=== PATIENT | female | born 1995 | race Caucasian/White ===

== ENCOUNTER 2021-09-01 11:12 | Emergency (ER) | payer OTHER, SELFPAY ==
--- NOTE | ~2021-09-01 | CT_ITS ---
EXAMINATION: CT ABDOMEN AND PELVIS WITHOUT CONTRAST CLINICAL INFORMATION: Right lower quadrant abdominal pain COMPARISON: None TECHNIQUE: Multidetector volumetric imaging was performed from the superior aspect of the liver through the pubic symphysis. Sagittal and coronal reformatted images were obtained on the technologist's workstation. This CT examination was performed using dose optimization techniques as appropriate, variously including the following: *Automated exposure control *Adjustment of mA and/or kV according to patient size (this includes techniques or standardized protocols for targeted exams where dose is matched to indication/reason for exam; i.e. extremities or head) *Use of iterative reconstruction technique DLP: 640 mGy-cm FINDINGS: LUNG BASES: The visualized lung bases are unremarkable. No pleural or pericardial effusion. LIVER, GALLBLADDER, AND BILIARY TREE: The liver is normal in size, shape, and attenuation. No focal hepatic lesion or biliary ductal dilatation is present. The gallbladder wall appears somewhat thickened and there may be some pericholecystic fat stranding present but difficult to evaluate due to lack of contrast and intra-abdominal fat. No cholelithiasis is identified. PANCREAS: Unremarkable. SPLEEN: Unremarkable. ADRENAL GLANDS: Unremarkable. KIDNEYS AND URETERS: There is mild right hydronephrosis present. There is a 3 mm nonobstructing calculus within the lower pole. There is columnization of the right ureter down to the ureterovesical junction where there are 2 adjacent calculi one measuring 5 mm in size and the other 2 mm in size. The left kidney appears unremarkable. The left ureter appears unremarkable. BLADDER: Right UVJ calculus GASTROINTESTINAL TRACT: No dilated loops of large or small bowel are evident. No free air is identified. There is a small amount of free fluid seen within the pelvis. The appendix appears unremarkable. No pericolonic inflammatory changes seen. ABDOMINAL WALL: No significant hernia is appreciated. LYMPH NODES: No lymphadenopathy is appreciated. VASCULAR: Unremarkable. PELVIC VISCERA: Intrauterine device seen in place. Small amount of free fluid. OSSEOUS STRUCTURES: Unremarkable. CT/CT abdomen pelvis wo con IMPRESSION: Mild right hydronephrosis with obstructing calculi at the right ureterovesical junction as described. Thick-walled gallbladder of uncertain etiology but may be secondary to pseudo thickening related to postprandial state. Clinical evaluation is suggested with possible ultrasound however the right-sided obstructive uropathy explains the patient's symptoms..
[2021-09-01 11:31] VITALS: BP 121/71; PULSE 67; RESP 18; TEMP 36.8; O2SAT 99; BMI 25.1
--- NOTE | 2021-09-01 11:53 | ED.ABDPAIN ---
HPI - Abdominal Pain General Chief Complaint: Abdominal Pain Stated Complaint: RLQ Abdominal Pain Time Seen by Provider: 09/01/21 11:52 Source: patient Mode of arrival: ambulatory Limitations: no limitations History of Present Illness HPI narrative: This is a 25-year-old female that presents to the emergency department with severe right lower quadrant pain that started this morning. Patient tells me that when she woke up this morning he started to have a crampy sensation her right lower quadrant, she felt like she had to urinate however she was unable to. She tells me that the pain started off as severe but at this time it is getting even worse. She tells me she has never had pain like this before. She also reports associated nausea and vomiting She denies any abdominal surgeries. She denies fevers, chills, chest pain, shortness of breath, headache, vision changes, dizziness, weakness. Patient tells me that she has a family history of kidney stones. Patient tells me that she is not currently sexually active, and does not think she is . MD elicited complaint: abdominal pain Pertinent past history: none Onset (ago): hour(s) (4) Pain Consistency: constant Location: RLQ Severity: severe Pain scale (0-10): 11 Quality: cramping and stabbing Radiation: none Migration to: no migration Exacerbating factors: nothing Relieving factors: nothing Associated symptoms: nausea and vomiting Related Data Home Medications Medication Instructions Recorded Confirmed rizatriptan 10 mg disintegrating 10 mg PO DAILY PRN 09/01/21 09/01/21 tablet (Maxalt-MANAGER LVN) sertraline 100 mg tablet 100 mg PO DAILY 09/01/21 09/01/21 Previous Rx's Medication Instructions Recorded morphine 15 mg immediate release 15 mg PO Q8H PRN #10 tab 09/01/21 tablet ondansetron HCl 4 mg tablet 4 mg PO Q8H PRN #10 tab 09/01/21 (Zofran) prednisone 20 mg tablet 20 mg PO DAILY 5 Days #5 tab 09/01/21 tamsulosin 0.4 mg capsule (Flomax) 0.4 mg PO DAILY 14 Days #14 cap 09/01/21 Allergies Allergy/AdvReac Type Severity Reaction Status Date / Time Iodinated Contrast Media Allergy Itching Verified 09/01/21 13:28 [Contrast Dye] Penicillins Allergy Unknown Verified 09/01/21 11:31 shellfish derived Allergy Unknown Verified 09/01/21 11:31 Sulfa (Sulfonamide Allergy Unknown Verified 09/01/21 11:31 Antibiotics) Review of Systems Review of Systems Constitutional : No Weight loss, No Fever, No Chills ENT/Mouth :? No sore throat, No Rhinorrhea Eyes: No Swelling, No Redness Cardiovascular : No Chest Pain, No SOB, NoEdema Respiratory : No Cough, No Sputum, No Wheezing Gastrointestinal : Positive Nausea, Positive Vomiting, No Diarrhea, positive abdominal Pain, No Hematochezia, No Melena Genitourinary : No Dysuria, No Urinary Frequency, No Hematuria, No Urgency Musculoskeletal : No joint pain, No Myalgias, No Joint Swelling Skin : No Skin Lesions, No rash Neuro : No Weakness, No Numbness, No Dizziness, No Headache Psych : No Anxiety/Panic, No Depression All other systems reviewed and are negative. Yes all other systems are reviewed and are negative Physical Exam Vital Signs: Vital Signs: Last Vital Signs Temp 98.2 F 09/01/21 11:31 Pulse 59 09/01/21 14:32 Resp 18 09/01/21 14:32 BP 107/63 09/01/21 14:32 Pulse Ox 99 09/01/21 14:32 BMI result Body Mass Index 25.1 VSS Appearance: Alert.? Oriented X3.? No acute distress.? Patient appears uncomfortable Head: Normocephalic, atraumatic, no step-offs or deformities Eyes: Pupils equal, round and reactive to light.? ENT: Pharynx normal.? Neck: Normal inspection.? Neck supple.? CVS: Normal heart rate and rhythm.? Pulses normal.? Respiratory: No respiratory distress.? Breath sounds normal.? Abdomen: Soft and + tender to RLQ.? Skin: Skin warm and dry.? Normal skin color.? Normal skin turgor.? Extremities: No lower extremity edema.? No calf ttp. 5/5 strength to bilateral upper and lower extremities Back: No midline tenderness, no C-spine tenderness, full range of motion, no CVA tenderness bilaterally Neuro: Oriented X 3.? No motor deficit.? No sensory deficit. Course Reevaluation(s) Reevaluation #1: Labs show no signs of acute infection. A normocytic anemia is noted. No electrolyte abnormalities. Urine toxicology negative. COVID negative. Patient tells me that she is allergic to IV contrast, she tells me she gets very tanned leak, and her throat closes, she also reports she has an allergy to shellfish. For this reason a dry CT will be done. Time: 13:55 Reevaluation #2: Patient still reporting severe pain, she will be given 2 mg of IV morphine. CT shows obstructing stone to the right ureter. I have contacted Dr. Rincon who will come evaluate the patient at the bedside. At this time I ordered prednisone, and Flomax. Time: 16:34 Reevaluation #3: Spoke to feels comfortable discharging the patient with Flomax, tramadol, naproxen, prednisone. Patient is safe for discharge home she will be given strict return precautions. Comfortable with discharge. Time: 16:49 MDM - Abdominal Pain MDM Narrative Medical decision making narrative: 1200 25-year-old female no known medical history presents to the emergency department with severe constant, cramping/stabbing right lower quadrant abdominal pain that started this morning. Patient feels like she is unable to void. Also reports associated nausea and vomiting. No abdominal surgeries. Family history of renal stones. Upon physical examination patient appears uncomfortable but in no acute distress. Vital signs are stable. S1-S2 appreciated free of murmurs. Lungs are clear. Abdomen is soft and tender to palpation to the right lower quadrant. Normoactive bowel sounds. No CVA tenderness. No focal neuro deficits. Plan at this time is to obtain basic labs, urine, CT of the abdomen and pelvis. At this time will rule out , appendicitis, intra-abdominal etiologies. Medical Records Attestation: I reviewed the patient's medical records. Lab Data Attestation: I reviewed the patient's lab results. Result diagrams: 09/01/21 12:05 12 12:05 Labs: Lab Results 09/01/21 09/01/21 09/01/21 Range/Units 11:45 11:45 11:56 WBC (4.8-10.8) X10*3/uL RBC (4.20-5.50) X10*6/uL Hgb (12.0-16.0) g/dl Hct (37.0-47.0) % MCV (80.0-98.0) fL MCH (27.0-33.0) pg MCHC (31.0-35.0) g/dl RDW (11.0-16.0) % Plt Count (160-400) X10*3/uL MPV (9.4-12.3) fL Immature Gran % (Auto) (0.0-0.4) % Neut % (Auto) (45-73) % Lymph % (Auto) (20-40) % [place] % (Auto) (2-11) % Eos % (Auto) (0-4) % Baso % (Auto) (0-2) % Lymph # (Auto) (1.2-4.9) X10*3/uL [place] # (Auto) (0.1-1.2) X10*3/uL Eos # (Auto) (0.0-0.4) X10*3/uL Baso # (Auto) (0.0-0.2) X10*3/uL Abs Immat Gran (auto) (0.00-0.03) X10*3/uL Absolute Neuts (auto) (2.0-8.3) x10*3/uL Absolute Nucleated RBC (0.0-0.012) X10*3/uL Nucleated RBC % (auto) (0.0-0.2) /100WBC Sodium (135-145) mmol/L Potassium (3.3-5.1) mmol/L Chloride (96-108) mmol/L Carbon Dioxide (22-29) mmol/L Anion Gap (12-20) BUN (9-16) mg/dL Creatinine (0.5-1.4) mg/dL Estim Creat Clear Calc Estimated GFR Random Glucose (60-115) mg/dL Calcium (8.4-10.2) mg/dL Magnesium (1.6-2.6) mg/dL Total Bilirubin (0.0-1.0) mg/dL AST (5-31) U/L ALT (0-31) U/L Alkaline Phosphatase (39-117) U/L Total Protein (6.5-8.0) g/dL Albumin (3.5-5.0) g/dL Lipase (8-78) U/L Urine Color YELLOW Urine Appearance CLOUDY Urine pH 8.0 (5.0-8.0) Ur Specific [place] 1.020 (1.005-1.025) Urine Protein NEG (NEG-TRACE) MG/DL Urine Glucose (UA) NEG (NEG) MG/DL Urine Ketones NEG (NEG) MG/DL Urine Blood 2+ H (NEG) Urine Nitrite NEG (NEG) Ur Leukocyte Esterase NEG (NEG) Urine RBC 30-49 H (0) /HPF Urine WBC 0-2 (0-4) /HPF Ur Squamous Epith Cells 1+ /LPF Amorphous Sediment 3+ /LPF Urine Bacteria 1+ /LPF Urine Test (NEGATIVE) Urine Opiates Screen Not Detected (Not Detect) Urine Fentanyl Screen Not Detected (Not Detect) Ur Barbiturates Screen Not Detected (Not Detect) Ur Phencyclidine Scrn Not Detected (Not Detect) Ur Amphetamines Screen Not Detected (Not Detect) U Benzodiazepines Scrn Not Detected (Not Detect) Urine Cocaine Screen Not Detected (Not Detect) U Marijuana (THC) Screen Not Detected (Not Detect) COVID-19 ([facility]ONEL) Negative (Negative) COVID-19 Clin Com See Note 09/01/21 09/01/21 09/01/21 Range/Units 12:05 12:05 12:10 WBC 6.1 (4.8-10.8) X10*3/uL RBC 3.90 L (4.20-5.50) X10*6/uL Hgb 10.9 L (12.0-16.0) g/dl Hct 34.0 L (37.0-47.0) % MCV 87.2 (80.0-98.0) fL MCH 27.9 (27.0-33.0) pg MCHC 32.1 (31.0-35.0) g/dl RDW 13.9 (11.0-16.0) % Plt Count 228 (160-400) X10*3/uL MPV 10.2 (9.4-12.3) fL Immature Gran % (Auto) 0.3 (0.0-0.4) % Neut % (Auto) 60.7 (45-73) % Lymph % (Auto) 28.9 (20-40) % [place] % (Auto) 8.3 (2-11) % Eos % (Auto) 1.3 (0-4) % Baso % (Auto) 0.5 (0-2) % Lymph # (Auto) 1.8 (1.2-4.9) X10*3/uL [place] # (Auto) 0.5 (0.1-1.2) X10*3/uL Eos # (Auto) 0.1 (0.0-0.4) X10*3/uL Baso # (Auto) 0.0 (0.0-0.2) X10*3/uL Abs Immat Gran (auto) 0.02 (0.00-0.03) X10*3/uL Absolute Neuts (auto) 3.7 (2.0-8.3) x10*3/uL Absolute Nucleated RBC 0.000 (0.0-0.012) X10*3/uL Nucleated RBC % (auto) 0.0 (0.0-0.2) /100WBC Sodium 139 (135-145) mmol/L Potassium 3.5 (3.3-5.1) mmol/L Chloride 107 (96-108) mmol/L Carbon Dioxide 24 (22-29) mmol/L Anion Gap 12 (12-20) BUN 6 L (9-16) mg/dL Creatinine 0.74 (0.5-1.4) mg/dL Estim Creat Clear Calc 119.3 Estimated GFR > 60 Random Glucose 118 H (60-115) mg/dL Calcium 9.4 (8.4-10.2) mg/dL Magnesium 1.9 (1.6-2.6) mg/dL Total Bilirubin 0.5 (0.0-1.0) mg/dL AST 30 (5-31) U/L ALT 16 (0-31) U/L Alkaline Phosphatase 41 (39-117) U/L Total Protein 7.0 (6.5-8.0) g/dL Albumin 4.2 (3.5-5.0) g/dL Lipase 14 (8-78) U/L Urine Color Urine Appearance Urine pH (5.0-8.0) Ur Specific [place] (1.005-1.025) Urine Protein (NEG-TRACE) MG/DL Urine Glucose (UA) (NEG) MG/DL Urine Ketones (NEG) MG/DL Urine Blood (NEG) Urine Nitrite (NEG) Ur Leukocyte Esterase (NEG) Urine RBC (0) /HPF Urine WBC (0-4) /HPF Ur Squamous Epith Cells /LPF Amorphous Sediment /LPF Urine Bacteria /LPF Urine Test NEGATIVE (NEGATIVE) Urine Opiates Screen (Not Detect) Urine Fentanyl Screen (Not Detect) Ur Barbiturates Screen (Not Detect) Ur Phencyclidine Scrn (Not Detect) Ur Amphetamines Screen (Not Detect) U Benzodiazepines Scrn (Not Detect) Urine Cocaine Screen (Not Detect) U Marijuana (THC) Screen (Not Detect) COVID-19 ([facility]ONEL) (Negative) COVID-19 Clin Com Critical Care Time Critical Care Time Critical Care Time: Yes Total Critical Care Time: 36 Attestation: I attest to this time spent taking care of the patient, starting an IV, medicating for pain, speaking to the specialist reviewing labs, and imaging. Discharge Plan Discharge Clinical Impression: Calculus of kidney, Nausea & vomiting Patient Disposition: Home, Self-Care Instructions: Kidney Stones (ED), Acute Nausea and Vomiting (ED) Additional Instructions: Take your medications as prescribed. Follow-up with your primary care provider this week. You can also take Naproxen over the counter it is an anti-inflammatory medication. Return to the emergency department with new or worsening symptoms. Such as worsening abdominal pain, fevers, chills, nausea, vomiting. In case of emergency call 911 Prescriptions: New prednisone 20 mg tablet 20 mg PO DAILY 5 Days Qty: 5 RF: 0 tamsulosin [Flomax] 0.4 mg capsule 0.4 mg PO DAILY 14 Days Qty: 14 RF: 0 ondansetron HCl [Zofran] 4 mg tablet 4 mg PO Q8H PRN (Reason: nausea and vomiting) Qty: 10 RF: 0 morphine 15 mg tablet 15 mg PO Q8H PRN (Reason: pain) Qty: 10 RF: 0 No Action sertraline 100 mg Tablet 100 mg PO DAILY RF: 0 rizatriptan [Maxalt-MANAGER LVN] 10 mg Tablet,Disintegrating 10 mg PO DAILY PRN (Reason: Migraine Headache) RF: 0 Referrals: Physician,Nonstaff [Primary Care Provider] - 2 days Peña Rincon MD [Physician] - 1 week Stand Alone Forms: Work/School Release [facility] Past Medical History Attestation statement: The following information was validated with the patient. Source: old records reviewed and nursing notes reviewed Social History Social History Smoked in Last 30 Days: No Use of substances other than those prescribed or required for medical reasons: No Advance Directives: No Advance Directives Information Provided: Yes Patient : No
[2021-09-01 11:56] LABS: Appearance Urine CLOUDY; Color Urine YELLOW; Glucose Urine UA NEG (NEG); Leukocyte Esterase Urine NEG (NEG); Nitrite Urine NEG (NEG); UACC Culture Trigger NO; Urine Blood 2+ (NEG); Urine Ketones NEG (NEG); Urine Protein NEG (NEG-TRACE)
[2021-09-01 12:03] LABS: Amorphous Sediment Urine 3+ /LPF; Bacteria Urine 1+ /LPF; RBC Urine 30-49 /HPF (0); WBC Urine 0-2 /HPF (0-4)
[2021-09-01 12:04] LABS: Squamous Epithelial Cell Urine 1+ /LPF
[2021-09-01 12:10] VITALS: BP 113/73; PULSE 56; RESP 18; O2SAT 99
[2021-09-01 12:10] LABS: MANUAL DIFF FLAG NO
[2021-09-01 12:11] LABS: Basophils Percent Auto 0.5 % (0-2); Eosinophils Absolute Auto 0.1 X10*3/uL (0.0-0.4); Eosinophils Percent Auto 1.3 % (0-4); Hemoglobin 10.9 g/dl (12.0-16.0); Imm Gran Abs Auto 0.02 X10*3/uL (0.00-0.03); Imm Gran Pct Auto 0.3 % (0.0-0.4); Lymphocytes Absolute Auto 1.8 X10*3/uL (1.2-4.9); Lymphocytes Percent Auto 28.9 % (20-40); Mean Corpuscular HGB Conc 32.1 g/dl (31.0-35.0); Mean Corpuscular Hemoglobin 27.9 pg (27.0-33.0); Mean Corpuscular Volume 87.2 fL (80.0-98.0); Mean Platelet Volume 10.2 fL (9.4-12.3); Monocytes Absolute Auto 0.5 X10*3/uL (0.1-1.2); Monocytes Percent Auto 8.3 % (2-11); Neutrophils Absolute Auto 3.7 x10*3/uL (2.0-8.3); Neutrophils Percent Auto 60.7 % (45-73); Platelet Count 228 X10*3/uL (160-400); Red Cell Distribution Width 13.9 % (11.0-16.0); White Blood Count 6.1 X10*3/uL (4.8-10.8)
[2021-09-01] MEDS: Morphine Sulfate 4 MG/ML CARTRIDGE IVPUSH (12:12)
[2021-09-01] MEDS: 0.9 % Sodium Chloride 1,000 ML 999 ML IV (12:12)
[2021-09-01 12:36] LABS: IDNOW Serial# 55D5AD1C
[2021-09-01 12:37] LABS: COVID-19 Test Negative (Negative)
[2021-09-01 12:38] LABS: Alanine Aminotransferase 16 U/L (0-31); Albumin Level 4.2 g/dL (3.5-5.0); Alkaline Phosphatase 41 U/L (39-117); Anion Gap 12 (12-20); Aspartate Amino Transferase 30 U/L (5-31); Bilirubin Total 0.5 mg/dL (0.0-1.0); Blood Urea Nitrogen 6 mg/dL (9-16); Calcium 9.4 mg/dL (8.4-10.2); Carbon Dioxide 24 mmol/L (22-29); Chloride 107 mmol/L (96-108); Creatinine Clr Calc Pharmacy 119.3; Estimated Glomerular Filt Rate > 60; Glucose Random 118 mg/dL (60-115); Lipase 14 U/L (8-78); Magnesium 1.9 mg/dL (1.6-2.6); Potassium 3.5 mmol/L (3.3-5.1); Sodium 139 mmol/L (135-145)
[2021-09-01 12:56] LABS: UPreg QC Valid YES; Urine Pregnancy NEGATIVE (NEGATIVE)
[2021-09-01 13:12] LABS: Amphetamine Screen Urine Not Detected (Not Detect); Barbiturates, Urine Not Detected (Not Detect); Benzodiazepines Screen Urine Not Detected (Not Detect); Cannabinoid Screen Urine Not Detected (Not Detect); Cocaine Screen Urine Not Detected (Not Detect); Fentanyl, urine Not Detected (Not Detect); Opiate Screen Urine Not Detected (Not Detect); Phencyclidine Screen Urine Not Detected (Not Detect)
--- NOTE | 2021-09-01 13:29 | PHA.MEDREC ---
MED REC COMPLETE, NO ISSUES. Pharmacy Consult ? Medication Reconciliation Pharmacy has completed the medication reconciliation.
[2021-09-01 14:32] VITALS: BP 107/63; PULSE 59; RESP 18; O2SAT 99
[2021-09-01] MEDS: Morphine Sulfate 2 MG/ML CARTRIDGE IVPUSH (14:32)
[2021-09-01] MEDS: predniSONE 20 MG TABLET 40 MG PO (16:14)
[2021-09-01] MEDS: Tamsulosin HCL 0.4 MG CAPSULE PO (16:14)
== END 2021-09-01 17:16 | disposition home or self-care (01) ==
PROVIDERS: Physician Assistant; Emergency Provider Emergency Medicine
DX: N13.2 Hydronephrosis with renal and ureteral calculous obstruction (principal); Z20.822 Contact with and (suspected) exposure to COVID-19; R11.2 Nausea with vomiting, unspecified; R10.31 Right lower quadrant pain
CPT/HCPCS: 36415; 74176; 80053; 80307; 81001; 81025; 83690; 83735; 85025; 87635; 96361; 96374; 96376; 99284; 99291; J2270